=== PATIENT | female | born 1980 | race Caucasian/White ===

== ENCOUNTER 2020-10-18 13:09 | Emergency (ER) | payer OTHER ==
[~2020-10-18] VITALS: Ht 154.9 cm; Wt 59.1 kg
[2020-10-18 15:42] VITALS: BP 122/67
== END 2020-10-18 15:43 | disposition home or self-care (01) ==
LOC: EMS 13:29
DX: Z11.1 Encounter for screening for respiratory tuberculosis (principal); D64.9 Anemia, unspecified; Z88.1 Allergy status to other antibiotic agents
CPT/HCPCS: 71045; 99283